=== PATIENT | male | born 1960 | race Caucasian/White ===

== ENCOUNTER 2016-08-11 12:28 | Inpatient (IN) | payer MEDICARE, MEDICAID ==
[~2016-08-11] VITALS: Ht 182.9 cm; Wt 114.0 kg
[2016-08-11] MEDS ORDERED: SODIUM CHLORIDE 0.9% 1,000 ML IV ONE (12:41)
[2016-08-11] MEDS ORDERED: SODIUM CHLORIDE FLUSH 10ML SYR IVF ONE (13:00)
[2016-08-11] MEDS ORDERED: ONDANSETRON 2MG/ML, 2ML ONE ×2 (13:06→16:22)
[2016-08-11 13:21] LABS: ASPARTATE AMINO TRANSFERASE 33 U/L (15-37); BLOOD UREA NITROGEN 22 mg/dL (7-18)
[2016-08-11 13:26] LABS: IS PT STATUS REG ER OR PRE ER? YES
[2016-08-11] MEDS ORDERED: SODIUM CHLORIDE 0.9% 1,000ML IVBOLUS ONE (13:30)
[2016-08-11] MEDS ORDERED: HYDROmorphone 1 MG/ML, 1ML ONE ×2 (13:41→14:40)
[2016-08-11] MEDS: HYDROmorphone 1 MG/ML, 1ML IVPush PRN ×2 (13:42→15:01)
[2016-08-11 13:46] LABS: PATH.CAST-FLAG NOT PRESENT; SPERM-FLAG NOT PRESENT; SRC-FLAG NOT PRESENT; XTAL-FLAG NOT PRESENT; YLC-FLAG NOT PRESENT
[2016-08-11] MEDS ORDERED: ONDANSETRON 2MG/ML, 2ML IVPush ONE (14:00)
[2016-08-11] MEDS ORDERED: KETOROLAC 30 MG/1 ML IVPush ONE (14:30)
[2016-08-11] MEDS ORDERED: KETOROLAC 30 MG/1 ML ONE ×2 (14:40→18:13)
[2016-08-11] MEDS ORDERED: SODIUM CHLORIDE FLUSH 10ML SYR IVF PRN (15:30)
[2016-08-11] MEDS ORDERED: HYDROmorphone 2 MG/ML, 1ML ONE (16:07)
[2016-08-11] MEDS: HYDROmorphone 2 MG/ML, 1ML IVPush PRN ×2 (16:13→20:47)
[2016-08-11] MEDS ORDERED: DEXTROSE 50%, 50ML SYRINGE IVPush PRN (16:30)
[2016-08-11] MEDS ORDERED: DOCUSATE 100 MG CAPSULE PO PRN (16:30)
[2016-08-11] MEDS ORDERED: ONDANSETRON ODT 4 MG PO PRN (16:30)
[2016-08-11] MEDS ORDERED: DEXTROSE 4 GM TAB.CHEW PO PRN (16:30)
[2016-08-11] MEDS ORDERED: LORazepam 1MG TABLET PO PRN (16:30)
[2016-08-11] MEDS ORDERED: BISACODYL 10 MG SUPP PR PRN (16:30)
[2016-08-11] MEDS ORDERED: ACETAMINOPHEN 325 MG TABLET PO PRN (16:30)
[2016-08-11] MEDS ORDERED: GLUCAGON 1 MG IM PRN (16:30)
[2016-08-11 16:59] VITALS: BP 185/115
[2016-08-11 17:06] VITALS: BP 185/115
[2016-08-11] MEDS: INSULIN REGULAR 100 UNITS/ML, 3ML VIAL SQ-INSULIN SCH ×2 (18:24→20:46)
[2016-08-11] MEDS: ENOXAPARIN 40 MG/0.4 ML SQ SCH (18:25)
[2016-08-11] MEDS: SODIUM CHLORIDE 0.9% 1,000 ML IV SCH (18:25)
[2016-08-11 19:18] LABS: IS PT STATUS REG ER OR PRE ER? NO
[2016-08-11 19:21] VITALS: BP 153/99
[2016-08-11] MEDS: SODIUM CHLORIDE FLUSH 10ML SYR IVF SCH (20:39)
[2016-08-11] MEDS: TAMSULOSIN 0.4 MG CAP.ER.24H PO SCH (20:39)
[2016-08-11] MEDS: BETAMETHASONE DIPRO CRM 0.05%, 15GM TP SCH (20:46)
[2016-08-11] MEDS: ONDANSETRON 2MG/ML, 2ML IVPush PRN (20:47)
[2016-08-11] MEDS ORDERED: KETOROLAC 30 MG/1 ML IVPush PRN (23:00)
[2016-08-12 00:56] VITALS: BP 159/95
[2016-08-12 00:59] LABS: IS PT STATUS REG ER OR PRE ER? NO
[2016-08-12] MEDS: HYDROmorphone 2 MG/ML, 1ML IVPush PRN ×4 (01:13→21:58)
[2016-08-12] MEDS: PROMETHAZINE 25 MG/ML, 1ML IM PRN ×3 (01:40→17:31)
[2016-08-12] MEDS: SODIUM CHLORIDE 0.9% 1,000 ML IV SCH ×3 (03:28→21:32)
[2016-08-12 05:58] LABS: ASPARTATE AMINO TRANSFERASE 26 U/L (15-37); BLOOD UREA NITROGEN 24 mg/dL (7-18)
[2016-08-12] MEDS: ASPIRIN 81 MG TABLET EC PO SCH (06:01)
[2016-08-12 06:48] LABS: DAU SCREEN DISCLAIMER
[2016-08-12 07:43] VITALS: BP 143/89
[2016-08-12] MEDS: SODIUM CHLORIDE FLUSH 10ML SYR IVF SCH ×2 (08:13→21:34)
[2016-08-12] MEDS: TAMSULOSIN 0.4 MG CAP.ER.24H PO SCH (08:18)
[2016-08-12] MEDS: BETAMETHASONE DIPRO CRM 0.05%, 15GM TP SCH ×2 (08:18→21:34)
[2016-08-12] MEDS: INSULIN REGULAR 100 UNITS/ML, 3ML VIAL SQ-INSULIN SCH ×4 (08:19→21:33)
[2016-08-12] MEDS ORDERED: LISINOPRIL 5 MG TABLET PO SCH (09:00)
[2016-08-12] MEDS: INSULIN DETEMIR 100 UNITS/ML, PEN SQ-INSULIN SCH ×2 (10:45→21:34)
[2016-08-12 14:44] VITALS: BP 125/68
[2016-08-12] MEDS: ENOXAPARIN 40 MG/0.4 ML SQ SCH (17:25)
[2016-08-12 21:11] VITALS: BP 123/77
[2016-08-13] VITALS (7 sets, daily range): BP systolic 125–183; BP diastolic 77–121
[2016-08-13] MEDS: ONDANSETRON 2MG/ML, 2ML IVPush PRN ×2 (03:08→20:38)
[2016-08-13] MEDS: HYDROmorphone 2 MG/ML, 1ML IVPush PRN ×3 (03:08→20:36)
[2016-08-13 05:34] LABS: BLOOD UREA NITROGEN 21 mg/dL (7-18)
[2016-08-13] MEDS: ASPIRIN 81 MG TABLET EC PO SCH (05:36)
[2016-08-13] MEDS: SODIUM CHLORIDE 0.9% 1,000 ML IV SCH ×3 (05:36→23:06)
[2016-08-13] MEDS: INSULIN REGULAR 100 UNITS/ML, 3ML VIAL SQ-INSULIN SCH ×4 (08:00→20:39)
[2016-08-13] MEDS: SODIUM CHLORIDE FLUSH 10ML SYR IVF SCH ×2 (08:00→20:39)
[2016-08-13] MEDS: TAMSULOSIN 0.4 MG CAP.ER.24H PO SCH (08:00)
[2016-08-13] MEDS: BETAMETHASONE DIPRO CRM 0.05%, 15GM TP SCH ×2 (08:01→20:40)
[2016-08-13] MEDS: ENALAPRILAT 1.25 MG/ML, 2ML IVPush PRN (08:09)
[2016-08-13] MEDS: INSULIN DETEMIR 100 UNITS/ML, PEN SQ-INSULIN SCH ×2 (08:36→20:38)
[2016-08-13] MEDS: METOPROLOL TARTRATE 25 MG TABLET PO SCH ×2 (11:19→20:38)
[2016-08-13] MEDS: PROMETHAZINE 25 MG/ML, 1ML IM PRN (11:19)
[2016-08-13] MEDS: AMLODIPINE 5 MG TABLET PO SCH ×2 (14:23→20:38)
[2016-08-13] MEDS: ENOXAPARIN 40 MG/0.4 ML SQ SCH (19:00)
[2016-08-13] MEDS: POLYETHYLENE GLYCOL 17 GM PACKET PO PRN (20:38)
[2016-08-14] VITALS (7 sets, daily range): BP systolic 130–176; BP diastolic 80–103
[2016-08-14] MEDS: LABETALOL 5MG/ML, 20ML IVPush PRN (00:02)
[2016-08-14] MEDS: ENALAPRILAT 1.25 MG/ML, 2ML IVPush PRN (00:42)
[2016-08-14] MEDS: HYDROmorphone 2 MG/ML, 1ML IVPush PRN ×4 (01:34→21:00)
[2016-08-14] MEDS ORDERED: ALBUTEROL SULFATE 2.5 MG/3 ML ONE ×2 (02:08→15:13)
[2016-08-14] MEDS ORDERED: ALBUTEROL SULFATE 2.5 MG/3 ML NPPB ONE (03:00)
[2016-08-14] MEDS ORDERED: ALBUTEROL SULFATE 2.5 MG/3 ML NPPB SCH (03:00)
[2016-08-14 05:14] LABS: BLOOD UREA NITROGEN 16 mg/dL (7-18)
[2016-08-14] MEDS: ASPIRIN 81 MG TABLET EC PO SCH ×2 (05:38→05:59)
[2016-08-14] MEDS: SODIUM CHLORIDE 0.9% 1,000 ML IV SCH ×2 (06:01→16:42)
[2016-08-14] MEDS: ONDANSETRON 2MG/ML, 2ML IVPush PRN ×3 (07:54→21:00)
[2016-08-14] MEDS: TAMSULOSIN 0.4 MG CAP.ER.24H PO SCH (08:27)
[2016-08-14] MEDS: INSULIN REGULAR 100 UNITS/ML, 3ML VIAL SQ-INSULIN SCH ×4 (08:27→20:51)
[2016-08-14] MEDS: AMLODIPINE 5 MG TABLET PO SCH ×2 (08:28→20:50)
[2016-08-14] MEDS: SODIUM CHLORIDE FLUSH 10ML SYR IVF SCH ×2 (08:28→20:52)
[2016-08-14] MEDS: METOPROLOL TARTRATE 25 MG TABLET PO SCH ×2 (08:28→20:52)
[2016-08-14] MEDS: BETAMETHASONE DIPRO CRM 0.05%, 15GM TP SCH ×2 (08:29→20:51)
[2016-08-14] MEDS: INSULIN DETEMIR 100 UNITS/ML, PEN SQ-INSULIN SCH ×2 (08:29→20:51)
[2016-08-14] MEDS ORDERED: FENTANYL PF 250 MCG/5ML ONE (10:29)
[2016-08-14] MEDS ORDERED: ONDANSETRON 2MG/ML, 2ML ONE (12:59)
[2016-08-14] MEDS ORDERED: KETOROLAC 30 MG/1 ML ONE (13:07)
[2016-08-14] MEDS ORDERED: HYDROmorphone 1 MG/ML, 1ML ONE (13:07)
[2016-08-14] MEDS ORDERED: ALBUTEROL SULFATE 2.5 MG/3 ML NPPB PRN ×2 (15:30→20:30)
[2016-08-14] MEDS: ENOXAPARIN 40 MG/0.4 ML SQ SCH (17:22)
[2016-08-14] MEDS ORDERED: ONDANSETRON ODT 4 MG PO PRN (20:30)
[2016-08-14] MEDS ORDERED: DEXTROSE 50%, 50ML SYRINGE IVPush PRN (20:30)
[2016-08-14] MEDS ORDERED: GLUCAGON 1 MG IM PRN (20:30)
[2016-08-15 01:25] VITALS: BP 151/89
[2016-08-15] MEDS: SODIUM CHLORIDE 0.9% 1,000 ML IV SCH ×2 (01:44→08:24)
[2016-08-15] MEDS: HYDROmorphone 2 MG/ML, 1ML IVPush PRN ×2 (02:20→12:14)
[2016-08-15] MEDS: ASPIRIN 81 MG TABLET EC PO SCH (05:01)
[2016-08-15 05:25] LABS: BLOOD UREA NITROGEN 19 mg/dL (7-18)
[2016-08-15] MEDS: INSULIN REGULAR 100 UNITS/ML, 3ML VIAL SQ-INSULIN SCH ×2 (07:00→11:00)
[2016-08-15 08:00] VITALS: BP 181/91
[2016-08-15] MEDS: SODIUM CHLORIDE FLUSH 10ML SYR IVF SCH ×2 (08:24→22:02)
[2016-08-15] MEDS: TAMSULOSIN 0.4 MG CAP.ER.24H PO SCH (08:24)
[2016-08-15] MEDS: AMLODIPINE 5 MG TABLET PO SCH ×2 (08:24→22:11)
[2016-08-15] MEDS: METOPROLOL TARTRATE 25 MG TABLET PO SCH ×2 (08:25→22:11)
[2016-08-15] MEDS: INSULIN DETEMIR 100 UNITS/ML, PEN SQ-INSULIN SCH ×2 (08:25→22:02)
[2016-08-15] MEDS: BETAMETHASONE DIPRO CRM 0.05%, 15GM TP SCH ×2 (08:26→22:05)
[2016-08-15] MEDS ORDERED: FUROSEMIDE 20 MG/2 ML IV ONE (12:00)
[2016-08-15] MEDS: FLUTICASONE/VILANTEROL 200-25MCG/INH INH SCH (12:14)
[2016-08-15] MEDS: LISINOPRIL 10 MG TABLET PO SCH (13:12)
[2016-08-15 14:04] VITALS: BP 152/76
[2016-08-15] MEDS: INSULIN ASPART 100 UNITS/ML, PEN SQ-INSULIN SCH ×2 (17:36→22:03)
[2016-08-15] MEDS: POLYETHYLENE GLYCOL 17 GM PACKET PO PRN (17:36)
[2016-08-15] MEDS: ENOXAPARIN 40 MG/0.4 ML SQ SCH (18:00)
[2016-08-15 18:42] VITALS: BP 126/71
[2016-08-15] MEDS ORDERED: HYDROmorphone 2 MG/ML, 1ML IVPush PRN (19:00)
[2016-08-16] MEDS: ASPIRIN 81 MG TABLET EC PO SCH (04:40)
[2016-08-16 05:18] LABS: BLOOD UREA NITROGEN 17 mg/dL (7-18)
[2016-08-16 07:33] VITALS: BP 175/110
[2016-08-16] MEDS: FLUTICASONE/VILANTEROL 200-25MCG/INH INH SCH (08:22)
[2016-08-16] MEDS: TAMSULOSIN 0.4 MG CAP.ER.24H PO SCH (08:22)
[2016-08-16] MEDS: LABETALOL 5MG/ML, 20ML IVPush PRN (08:22)
[2016-08-16] MEDS: AMLODIPINE 5 MG TABLET PO SCH (08:22)
[2016-08-16] MEDS: LISINOPRIL 10 MG TABLET PO SCH (08:22)
[2016-08-16] MEDS: METOPROLOL TARTRATE 25 MG TABLET PO SCH (08:22)
[2016-08-16] MEDS: INSULIN ASPART 100 UNITS/ML, PEN SQ-INSULIN SCH ×3 (08:23→16:00)
[2016-08-16] MEDS: INSULIN DETEMIR 100 UNITS/ML, PEN SQ-INSULIN SCH (08:23)
[2016-08-16] MEDS: BETAMETHASONE DIPRO CRM 0.05%, 15GM TP SCH (08:23)
[2016-08-16] MEDS: SODIUM CHLORIDE FLUSH 10ML SYR IVF SCH (08:26)
[2016-08-16] MEDS ORDERED: OXYcodone/APAP 10/325MG TABLET PO PRN (10:30)
[2016-08-16 13:09] VITALS: BP 153/96
[2016-08-16] MEDS ORDERED: LABETALOL 5MG/ML, 20ML IVPush PRN (13:30)
[2016-08-16] MEDS ORDERED: LISI-167 PO (16:04)
[2016-08-16] MEDS ORDERED: DOCU-30 PO (16:04)
[2016-08-16] MEDS ORDERED: OXYC1TAB9 PO (16:04)
[2016-08-16] MEDS ORDERED: TAMS-11 PO (16:04)
[2016-08-16] MEDS ORDERED: CARV6.252 PO (16:04)
[2016-08-16] MEDS ORDERED: POLY17PO5 PO (16:04)
[2016-08-16] MEDS ORDERED: INSU100I18 SQ-INSULIN (16:04)
[2016-08-16] MEDS ORDERED: IPRA3AMP INH (16:04)
[2016-08-16] MEDS ORDERED: AMLO5TAB2 PO (16:04)
[2016-08-16] MEDS ORDERED: INSU100I28 SQ-INSULIN (16:04)
[2016-08-16] MEDS ORDERED: ASPI-621 PO (16:04)
[2016-08-16] MEDS ORDERED: BETA15CR4 TP (16:04)
== END 2016-08-16 18:20 | disposition home or self-care (01) | DRG 668 ==
LOC: ED 12:53 → EDIP 15:23 → 4WST 16:59
PROVIDERS: ADMIT Hospitalist; ATTEND Family Medicine
PROC: 0T7D8ZZ Dilation of Urethra, Via Natural or Artificial Opening Endoscopic (ICD-10-PCS; 2016-08-14)
PROC: 0T778DZ Dilation of Left Ureter with Intraluminal Device, Via Natural or Artificial Opening Endoscopic (ICD-10-PCS; 2016-08-14)
PROC: 0TC78ZZ Extirpation of Matter from Left Ureter, Via Natural or Artificial Opening Endoscopic (ICD-10-PCS; principal; 2016-08-14 10:00)
DX: N13.2 Hydronephrosis with renal and ureteral calculous obstruction (principal); J18.1 Lobar pneumonia, unspecified organism; E87.1 Hypo-osmolality and hyponatremia; N17.9 Acute kidney failure, unspecified; D72.829 Elevated white blood cell count, unspecified; D75.1 Secondary polycythemia; E11.22 Type 2 diabetes mellitus with diabetic chronic kidney disease; E11.65 Type 2 diabetes mellitus with hyperglycemia; E66.9 Obesity, unspecified; Z68.34 Body mass index [BMI] 34.0-34.9, adult; E78.5 Hyperlipidemia, unspecified; E86.0 Dehydration; E86.1 Hypovolemia; E87.8 Other disorders of electrolyte and fluid balance, not elsewhere classified; F12.10 Cannabis abuse, uncomplicated; G89.29 Other chronic pain; I12.9 Hypertensive chronic kidney disease with stage 1 through stage 4 chronic kidney disease, or unspecified chronic kidney disease; I16.0 Hypertensive urgency; I44.7 Left bundle-branch block, unspecified; J44.9 Chronic obstructive pulmonary disease, unspecified; K76.0 Fatty (change of) liver, not elsewhere classified; L40.9 Psoriasis, unspecified; N18.9 Chronic kidney disease, unspecified; N35.9 Urethral stricture, unspecified; Z87.442 Personal history of urinary calculi; Z87.891 Personal history of nicotine dependence; Z71.3 Dietary counseling and surveillance; Z71.51 Drug abuse counseling and surveillance of drug abuser; R06.89 Other abnormalities of breathing; Z87.820 Personal history of traumatic brain injury
CPT/HCPCS: 36415; 71010; 74000; 74176; 76000; 76770; 80048; 80053; 80061; 80307; 81001; 81003; 82010; 82360; 82800; 82962; 83036; 83690; 83735; 84145; 84484; 85025; 87040; 88300; 93005; 93306; 96361; 96374; 96375; J1170; J1650; J1815; J1885; J2405; J2550; J3010; C1758; C1769; C2617; J1940; J7030

== ENCOUNTER 2018-04-16 20:00 | Inpatient (IN) | payer MEDICARE, MEDICAID ==
[~2018-04-16] VITALS: Ht 180.3 cm; Wt 112.0 kg
[~2018-04-16 20:00] MED LIST: AMLO-150 PO; ASPI81TA45 PO; BETA15CR4 TP; CARV6.252 PO; DOCU-131 PO; INSU100I18 SQ-INSULIN; INSU100I28 SQ-INSULIN; IPRA3AMP30 INH; LISI-167 PO; OXYC-432 PO; POLY17PO5 PO; TAMS-11 PO
--- NOTE | 2018-04-16 20:00 | NUR ---
LATE ENTRY FOR 20:00. FIRST CONTACT WITH PT. PT C/O NOSE/AROUND EYES SWELLING/PAIN SINCE YESTERDAY. PT HAS HX OF COPD/HTN/DM2. PT'S AOX4. RESPS EVEN AND UNLABORED. NO VISION CHANGE. DENIES BRIGHT/D/V AT THIS TIME. AWAITING EDMD ASSESSMENT AT THIS TIME.
[2018-04-16 20:30] LABS: BASOPHILS # (AUTO) 0.03 x10^3/uL (0-0.1); BASOPHILS % (AUTO) 0 % (0-1); EOSINOPHILS # (AUTO) 0.21 x10^3/uL (0-0.4); EOSINOPHILS % (AUTO) 2 % (1-7); LYMPHOCYTES # (AUTO) 3.15 x10^3/uL (1-3.4); LYMPHOCYTES % (AUTO) 25 % (22-44); MD NO; MEAN CORPUSCULAR HEMOGLOBIN 30.7 pg (27.5-34.5); MEAN CORPUSCULAR HGB CONC 32.8 g/dL (33.2-36.2); MEAN CORPUSCULAR VOLUME 93.6 fL (81-97); MEAN PLATELET VOLUME 9.6 fL (7.4-10.4); MONOCYTES # (AUTO) 1.02 x10^3/uL (0.2-0.8); MONOCYTES % (AUTO) 8 % (2-9); NEUTROPHILS # (AUTO) 8.34 x10^3/uL (1.8-6.8); NEUTROPHILS % (AUTO) 65 % (42-75); PLATELET COUNT 181 x10^3/uL (130-400); RED CELL DISTRIBUTION WIDTH 13.2 % (9.4-14.8)
[2018-04-16] MEDS ORDERED: NITROGLYCERIN OINT 2%, 1GM TP ONE ×2 (20:30→20:54)
[2018-04-16] MEDS ORDERED: LABETALOL 5MG/ML, 20ML IVPush ONE (20:30)
[2018-04-16] MEDS ORDERED: SODIUM CHLORIDE FLUSH 10ML SYR IVF ONE ×3 (20:30→21:00)
[2018-04-16 20:31] LABS: CHLORIDE 100 mmol/L (98-107)
[2018-04-16 20:37] LABS: ALANINE AMINOTRANSFERASE 47 U/L (12-78); ALBUMIN 3.5 g/dL (3.4-5.0); ANION GAP 5 mmol/L (5-15); CALCIUM 8.5 mg/dL (8.5-10.1); CREATININE 1.58 mg/dL (0.7-1.3)
[2018-04-16 20:55] LABS: ALKALINE PHOSPHATASE 89 U/L (45-117); BILIRUBIN,TOTAL 0.9 mg/dL (0.2-1.0); TOTAL PROTEIN 7.7 g/dL (6.4-8.2); TROPONIN I < 0.015 ng/mL (0.000-0.045)
[2018-04-16] MEDS ORDERED: MORPHINE SULFATE 4 MG/ML, 1ML ONE (20:55)
[2018-04-16] MEDS ORDERED: VANCOMYCIN 1,900 MG in SODIUM CHLORIDE 0.9% 250 ML IV ONE (21:00)
[2018-04-16] MEDS ORDERED: VANCOMYCIN PER PHARMACY IV ONE (21:00)
[2018-04-16] MEDS ORDERED: MORPHINE SULFATE 4 MG/ML, 1ML IV PRN (21:00)
[2018-04-16] MEDS ORDERED: AMPICILLIN/SULBACTAM 3 GM in SODIUM CHLORIDE 0.9% 100 ML IVPB ONE (21:00)
--- NOTE | 2018-04-16 21:16 | NUR ---
PT MEDICATED PER EMAR. PT TOLERATED WELL. PT'S AOX4. RESPS EVEN AND UNLABORED.
--- NOTE | 2018-04-16 21:56 | NUR ---
REPORT GIVEN TO CHELSEA GARCIA. ALL QUESTIONS ANSWERED.
[2018-04-16] MEDS ORDERED: [UNRECOGNIZED DRUG - REMARK] (22:01)
[2018-04-16] MEDS ORDERED: ALBU8.5H8 INH (22:06)
[2018-04-16] MEDS ORDERED: BISACODYL 10 MG SUPP PR PRN (22:30)
[2018-04-16] MEDS ORDERED: ONDANSETRON ODT 4 MG PO PRN (22:30)
[2018-04-16] MEDS ORDERED: VANCOMYCIN PER PHARMACY MC PRN (22:30)
[2018-04-16] MEDS ORDERED: POLYETHYLENE GLYCOL 17 GM PACKET PO PRN (22:30)
[2018-04-16] MEDS ORDERED: ALBUTEROL/IPRATROPIUM 2.5MG/0.5MG, 3 ML NPPB PRN (22:30)
[2018-04-16] MEDS: AMPICILLIN/SULBACTAM 3 GM in SODIUM CHLORIDE 0.9% 100 ML IV SCH (22:30)
[2018-04-16] MEDS: SODIUM CHLORIDE 0.9% 1,000 ML IV SCH (22:30)
[2018-04-16] MEDS ORDERED: ACETAMINOPHEN 325 MG TABLET PO PRN (22:30)
[2018-04-16 22:32] LABS: HEMOGLOBIN A1C 11.6 % (4.2-6.3)
[2018-04-16 22:53] VITALS: BP 146/73
[2018-04-16] MEDS: HEPARIN 5,000 UNITS/ML, 1ML SQ SCH (23:09)
[2018-04-16] MEDS: LISINOPRIL 20 MG TABLET PO SCH (23:09)
[2018-04-16] MEDS: INSULIN LISPRO 100 UNITS/ML, PEN SQ-INSULIN SCH (23:19)
[2018-04-16 23:32] VITALS: BP 154/88
[2018-04-17] MEDS ORDERED: PHARMACOKINETIC MONITORING MC PRN (01:00)
[2018-04-17] MEDS ORDERED: PHARMACOKINETIC CONSULTATION MC ONE (01:00)
[2018-04-17 02:33] VITALS: BP 145/82
[2018-04-17] MEDS: KETOROLAC 30 MG/1 ML IV PRN ×3 (04:00→20:16)
[2018-04-17] MEDS: AMPICILLIN/SULBACTAM 3 GM in SODIUM CHLORIDE 0.9% 100 ML IV SCH ×4 (05:18→23:02)
[2018-04-17 05:24] VITALS: BP 104/63
[2018-04-17] MEDS: CARVEDILOL 6.25 MG TABLET PO SCH ×2 (05:25→17:56)
[2018-04-17 05:47] LABS: ALANINE AMINOTRANSFERASE 39 U/L (12-78); ALBUMIN 2.8 g/dL (3.4-5.0); ANION GAP 6 mmol/L (5-15); CALCIUM 7.7 mg/dL (8.5-10.1); CHLORIDE 101 mmol/L (98-107); CREATININE 1.04 mg/dL (0.7-1.3)
[2018-04-17 05:50] LABS: ALKALINE PHOSPHATASE 71 U/L (45-117); BILIRUBIN,TOTAL 0.5 mg/dL (0.2-1.0); TOTAL PROTEIN 5.9 g/dL (6.4-8.2)
[2018-04-17 06:06] LABS: BASOPHILS # (AUTO) 0.06 x10^3/uL (0-0.1); BASOPHILS % (AUTO) 1 % (0-1); EOSINOPHILS % (AUTO) 2 % (1-7); LYMPHOCYTES % (AUTO) 28 % (22-44); MD NO; MEAN CORPUSCULAR HEMOGLOBIN 31.5 pg (27.5-34.5); MEAN CORPUSCULAR HGB CONC 34.3 g/dL (33.2-36.2); MEAN CORPUSCULAR VOLUME 91.7 fL (81-97); MEAN PLATELET VOLUME 9.6 fL (7.4-10.4); MONOCYTES # (AUTO) 1.09 x10^3/uL (0.2-0.8); MONOCYTES % (AUTO) 10 % (2-9); NEUTROPHILS # (AUTO) 6.78 x10^3/uL (1.8-6.8); NEUTROPHILS % (AUTO) 60 % (42-75); PLATELET COUNT 184 x10^3/uL (130-400); RED BLOOD COUNT 5.41 x10^6/uL (4.38-5.82); RED CELL DISTRIBUTION WIDTH 13.1 % (9.4-14.8)
[2018-04-17] MEDS: SODIUM CHLORIDE 0.9% 1,000 ML IV SCH (06:17)
[2018-04-17] MEDS: HEPARIN 5,000 UNITS/ML, 1ML SQ SCH ×3 (06:17→23:02)
[2018-04-17 07:41] VITALS: BP 119/76
[2018-04-17] MEDS: SENNA/DOCUSATE TABLET PO SCH (09:03)
[2018-04-17] MEDS: INSULIN LISPRO 100 UNITS/ML, PEN SQ-INSULIN SCH ×4 (09:03→20:06)
[2018-04-17] MEDS: LISINOPRIL 20 MG TABLET PO SCH ×2 (09:04→20:02)
[2018-04-17 13:10] VITALS: BP 121/79
[2018-04-17 14:27] VITALS: BP 151/97
[2018-04-17] MEDS: VANCOMYCIN 2,100 MG in SODIUM CHLORIDE 0.9% 500 ML IV SCH (16:18)
[2018-04-17 20:27] VITALS: BP 157/102
[2018-04-18 01:36] VITALS: BP 157/102
[2018-04-18] MEDS: KETOROLAC 30 MG/1 ML IV PRN ×3 (02:55→16:09)
[2018-04-18] MEDS: AMPICILLIN/SULBACTAM 3 GM in SODIUM CHLORIDE 0.9% 100 ML IV SCH ×3 (05:12→18:31)
[2018-04-18] MEDS: HEPARIN 5,000 UNITS/ML, 1ML SQ SCH ×3 (06:09→23:24)
[2018-04-18] MEDS: CARVEDILOL 6.25 MG TABLET PO SCH ×2 (06:09→17:38)
[2018-04-18 06:30] VITALS: BP 154/104
[2018-04-18] MEDS: INSULIN LISPRO 100 UNITS/ML, PEN SQ-INSULIN SCH ×5 (07:00→20:15)
[2018-04-18 07:12] LABS: BASOPHILS # (AUTO) 0.05 x10^3/uL (0-0.1); BASOPHILS % (AUTO) 1 % (0-1); EOSINOPHILS # (AUTO) 0.28 x10^3/uL (0-0.4); EOSINOPHILS % (AUTO) 3 % (1-7); LYMPHOCYTES # (AUTO) 2.86 x10^3/uL (1-3.4); LYMPHOCYTES % (AUTO) 28 % (22-44); MD NO; MEAN CORPUSCULAR HEMOGLOBIN 30.3 pg (27.5-34.5); MEAN CORPUSCULAR HGB CONC 32.6 g/dL (33.2-36.2); MEAN CORPUSCULAR VOLUME 92.9 fL (81-97); MEAN PLATELET VOLUME 9.1 fL (7.4-10.4); MONOCYTES # (AUTO) 0.87 x10^3/uL (0.2-0.8); MONOCYTES % (AUTO) 9 % (2-9); NEUTROPHILS # (AUTO) 6.19 x10^3/uL (1.8-6.8); NEUTROPHILS % (AUTO) 60 % (42-75); PLATELET COUNT 189 x10^3/uL (130-400); RED BLOOD COUNT 5.56 x10^6/uL (4.38-5.82); RED CELL DISTRIBUTION WIDTH 13.3 % (9.4-14.8)
[2018-04-18 07:22] LABS: ANION GAP 7 mmol/L (5-15); CALCIUM 7.9 mg/dL (8.5-10.1); CHLORIDE 103 mmol/L (98-107); CREATININE 0.91 mg/dL (0.7-1.3)
[2018-04-18] MEDS ORDERED: AMLODIPINE 5 MG TABLET PO SCH (09:00)
[2018-04-18] MEDS: SENNA/DOCUSATE TABLET PO SCH (09:00)
[2018-04-18] MEDS: LISINOPRIL 20 MG TABLET PO SCH ×2 (09:08→20:14)
[2018-04-18] MEDS: VANCOMYCIN 2,100 MG in SODIUM CHLORIDE 0.9% 500 ML IV SCH (10:16)
[2018-04-18 12:25] VITALS: BP 144/91
[2018-04-18 19:24] VITALS: BP 156/104
[2018-04-19] MEDS: KETOROLAC 30 MG/1 ML IV PRN ×2 (00:59→07:58)
[2018-04-19] MEDS: AMPICILLIN/SULBACTAM 3 GM in SODIUM CHLORIDE 0.9% 100 ML IV SCH (00:59)
[2018-04-19 03:02] VITALS: BP 154/98
[2018-04-19] MEDS: VANCOMYCIN 2,100 MG in SODIUM CHLORIDE 0.9% 500 ML IV SCH (04:14)
[2018-04-19] MEDS: HEPARIN 5,000 UNITS/ML, 1ML SQ SCH (05:56)
[2018-04-19] MEDS: CARVEDILOL 6.25 MG TABLET PO SCH (05:57)
[2018-04-19 06:25] VITALS: BP 163/113
[2018-04-19] MEDS: INSULIN LISPRO 100 UNITS/ML, PEN SQ-INSULIN SCH ×2 (07:00→11:00)
[2018-04-19] MEDS ORDERED: CARV3.12 PO (08:11)
[2018-04-19] MEDS ORDERED: LISI-170 PO (08:11)
[2018-04-19] MEDS ORDERED: AMOX1TAB12 PO (08:11)
[2018-04-19] MEDS ORDERED: AMLO10TA8 PO (08:11)
[2018-04-19] MEDS ORDERED: AMOXICILLIN/CLAV 875-125MG TABLET PO SCH (09:00)
[2018-04-19] MEDS: SENNA/DOCUSATE TABLET PO SCH (09:00)
[2018-04-19] MEDS ORDERED: AMLODIPINE 10 MG TAB PO SCH (09:00)
[2018-04-19] MEDS: LISINOPRIL 20 MG TABLET PO SCH (09:10)
== END 2018-04-19 13:45 | disposition home or self-care (01) | DRG 871 ==
LOC: ED 20:42 → 5SO 21:22 → 4NOR 04-17 14:24 → DCLOUNGE 04-19 13:35
PROVIDERS: ADMIT Internal Medicine; ATTEND Internal Medicine
DX: A41.9 Sepsis, unspecified organism (principal); N17.0 Acute kidney failure with tubular necrosis; J96.10 Chronic respiratory failure, unspecified whether with hypoxia or hypercapnia; L03.211 Cellulitis of face; L03.213 Periorbital cellulitis; E87.1 Hypo-osmolality and hyponatremia; I16.9 Hypertensive crisis, unspecified; D75.1 Secondary polycythemia; E11.9 Type 2 diabetes mellitus without complications; E66.9 Obesity, unspecified; E78.5 Hyperlipidemia, unspecified; F12.10 Cannabis abuse, uncomplicated; G89.29 Other chronic pain; I10 Essential (primary) hypertension; I44.7 Left bundle-branch block, unspecified; J44.9 Chronic obstructive pulmonary disease, unspecified; L40.9 Psoriasis, unspecified; Z66 Do not resuscitate; Z82.49 Family history of ischemic heart disease and other diseases of the circulatory system; Z87.891 Personal history of nicotine dependence; Z91.19 Patient's noncompliance with other medical treatment and regimen; Z68.34 Body mass index [BMI] 34.0-34.9, adult
CPT/HCPCS: 36415; 71045; 80048; 80053; 82962; 83036; 83605; 84484; 85025; 87040; 93005; 96365; 96375; 99291; G0378; J0295; J1644; J1885; J3370; J1815; J7030; J7040; J7050

== ENCOUNTER 2020-09-25 19:25 | Emergency (ER) | payer MEDICARE ==
[~2020-09-25] VITALS: Ht 182.9 cm; Wt 108.0 kg
[~2020-09-25 19:25] MED LIST changes: +ALBU8.5H8 INH; +AMLO-211 PO; +AMOX1TAB12 PO; +CARV3.12 PO; +LISI-170 PO; -OXYC-432 PO; +OXYC1TAB18 PO; +[UNRECOGNIZED DRUG - REMARK]
[2020-09-25 19:34] VITALS: BP 145/97
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
--- NOTE | 2020-09-25 20:20 | NUR ---
PT BACK FROM CT SCAN, AND BACK TO ROOM 4
--- NOTE | 2020-09-25 21:14 | NUR ---
F/U AND D/C INSTRUCTIONS GIVEN TO PT AND HE V/U. PT AMBULATED TO THE DISCHARGE DESK, WITHOUT ISSUE.
== END 2020-09-25 21:16 | disposition home or self-care (01) ==
LOC: ED 21:10
DX: S00.83XA Contusion of other part of head, initial encounter (principal); S09.90XA Unspecified injury of head, initial encounter; J44.9 Chronic obstructive pulmonary disease, unspecified; E11.65 Type 2 diabetes mellitus with hyperglycemia; I10 Essential (primary) hypertension; Z87.891 Personal history of nicotine dependence; W22.8XXA Striking against or struck by other objects, initial encounter; Y93.89 Activity, other specified; Y92.89 Other specified places as the place of occurrence of the external cause; Y99.8 Other external cause status
CPT/HCPCS: 70450; 70486; 99285